=== PATIENT | female | born 1955 | race Caucasian/White ===

== ENCOUNTER → 2023-11-02 09:58 | Outpatient (REF) | payer OTHER, SELFPAY | LOC: WDC 09:58 | PROVIDERS: ATTENDING PHYSICIAN Nurse Practitioner | DX: R92.8 Other abnormal and inconclusive findings on diagnostic imaging of breast (principal) | CPT/HCPCS: 77061; 77065 ==

== ENCOUNTER 2024-03-31 20:04 | Emergency (ER) | payer MEDICARE, SELFPAY ==
[2024-03-31 20:15] VITALS: BP 153/82
[2024-03-31 21:41] VITALS: BMI 25.0
[2024-03-31 22:00] VITALS: BP 140/83
[2024-03-31 22:00] LABS: % Basophils 0.5 % (0-2); % Eosinophils 0.5 % (0-6); % Immature Granulocytes 0.2 % (0-0.5); % Monocytes 8.6 % (1.7-9.3); % Neutrophils 66.2 % (42.2-75.2); Absolute Lymphocytes 1.4 10^3/uL (1.2-3.4); Absolute Monocytes 0.5 10^3/uL (0.1-0.6); Absolute Neutrophils 3.9 10^3/uL (1.4-6.5); Hematocrit 39.9 % (37.0-47.0); Hemoglobin 14.2 g/dL (12.0-16.0); Mean Corp Hgb Conc. 35.6 g/dL (33.0-37.0); Mean Corpuscular Volume 81.4 fL (81.0-99.0); Mean Platelet Volume 12.2 fL (7.4-10.4); Nucleated Red Blood Cells % 0 %; Platelet Count 197 10^3/uL (130-400); Red Cell Dist. Width 12.1 % (11.5-14.5); Urine Albumin Negative (Neg - Trace); Urine Bilirubin Negative (Negative); Urine Character Clear (Clear); Urine Color Yellow; Urine Glucose Negative (Negative); Urine Ketone Negative (Negative); Urine Leukocyte 1+ (Negative); Urine Nitrite Negative (Negative); Urine Occult Blood 4+ (Negative); Urine Urobilinogen Negative (Neg - 1+)
[2024-03-31 22:11] LABS: Urine Red Blood Cell 0-2 /HPF (0-2)
[2024-03-31 22:18] LABS: Blood Urea Nitrogen 12 mg/dl (7-17); Calcium 9.6 mg/dl (8.4-10.2); Carbon Dioxide 25 mmol/L (22-30); Chloride 105 mmol/L (98-107); Estimated Creatinine Clearance 59 ml/min; Glucose 99 mg/dl (70-99); Potassium 4.1 mmol/L (3.5-5.1); Sodium 136 mmol/L (135-145); eGFR > 60.00
[2024-03-31 22:41] LABS: ALT (SGPT) 32 U/L (0-35); AST (SGOT) 31 U/L (14-36); Albumin 4.2 g/dl (3.5-5.0); Alkaline Phosphatase 115 U/L (38-126); Direct Bilirubin 0.2 mg/dl (0.0-0.4); Total Bilirubin 0.5 mg/dl (0.2-1.3); Total Protein 6.5 g/dl (6.3-8.2)
--- NOTE | 2024-03-31 22:58 | ED.GENMED ---
History of Present Illness
General
Chief Complaint: Urinary Symptoms
Source: patient
Exam Limitations: none
Time Seen by Provider: 03/31/24 21:22
Nursing documentation reviewed up to this point in time: agreed with
History of Present Illness
History of Present Illness:
Patient presents to ED secondary to intermittent episodes of passage of small blood clots during urination over the past 10 days. Patient was evaluated by her [facility] [employer] [employer] physician 2 days ago, during which time she received a pelvic exam, along with
straight catheterization of urine. Patient was empirically started on Macrobid at that time, along with given prescription to receive pelvic ultrasound as an outpatient, which is scheduled in 3 weeks. Denies fever or chills. Denies nausea,
vomiting, or diarrhea. Patient states that she does not 'feel well'. Denies previous history of similar symptoms. Patient reports approximately 10 pound weight loss with decreased appetite over the past 1 month. Denies fever or chills. Denies
abdominal pain. Denies dizziness or weakness. Denies shortness of breath. Patient does not take any blood thinning medications.
Review of Systems
Review of Systems
Allergies reviewed?: Yes
All Other Systems: ROS reviewed and negative except as documented in HPI and ROS
Constitutional: Reports no symptoms; Denies fever or chills
ABD/GI: Reports no symptoms; Denies abdominal pain, nausea, vomiting or diarrhea
: Reports bleeding
Musculoskeletal: Reports no symptoms
Skin: Reports no symptoms
Neurological: Reports no symptoms
Phy Exam
Physical Exam
Physical Exam:
Physical Exam
General: no apparent distress, not acutely ill. afebrile
Head: nc/at. eomi
Neck: supple. no meningeal signs.
Abdomen: normal bowel sounds. not tender.
Neuro: alert and oriented. no focal neurological deficits
Skin: no rash
Psychiatric: well kept. interactive and cooperative
Extremities: no edema. no calf tenderness.
Course
Orders/Labs/Results
Orders:
Orders
07/20/24 21:48
Basic Metabolic Panel Urgent
Complete Blood Count/With Diff Urgent
Fupay-Dolo-Krssdzk Urgent
Comment: ADD ON
Urinalysis Reflex To Culture Urgent
Date Specimen was Collected: 03/31/24
Time Specimen was Collected: 21:46
Urine Microscopic Reflex Cult Urgent
Urine Culture Urgent
[facility] Source: U
Specimen Description:
Date Specimen was Collected: 03/31/24
Time Specimen was Collected: 21:46
03/31/24 22:25
Add On- LAB Urgent
Tests Added?: liver function test
03/31/24 22:37
0.9% Sodium Chloride 500 ml [Nss] 500 ml IV BOLUS
US Pelvis W Transvag Combined Urgent
Comment:
Reason For Exam: vaginal bleeding w weight loss
04/01/24 00:19
0.9% Sodium Chloride 500 ml [Nss] 500 ml IV BOLUS
Abnormal Lab Results
03/31/24
21:48
MPV 12.2 H fL
(7.4-10.4)
Ur Occult Blood Reflex 4+ A
(Negative)
Leukocyte Esterase Rfl 1+ A
(Negative)
03/31/24 21:48
03/31/24 21:48
Vital Signs
Initial and Last Documented VS:
Initial Vital Signs
Temp Pulse Resp BP Pulse Ox
98.9 F 76 14 153/82 100
03/31/24 20:15 03/31/24 20:15 03/31/24 20:15 03/31/24 20:15 03/31/24 20:15
Last Documented Vital Signs
Temp Pulse Resp BP Pulse Ox
98.9 F 75 16 135/74 95
03/31/24 20:15 04/01/24 01:42 04/01/24 01:42 04/01/24 01:42 04/01/24 01:42
MDM/Problems Addressed
MDM/Problems Addressed:
UA: no RBCs noted.
Blood work within normal limits.
Pelvic US report reviewed and discussed with patient. Advised f/u with her [employer]holste[employer] physician for further evaluation and treatment.
*Critical Care Note
Total Time (30-74mins, 75-104mins- exclusive of procedures): Not Applicable
ED Attending Note
-
Portions of this chart may have been created with voice recognition software.� Occasional wrong word or��sound alike� substitutions may have occurred due to the inherent limitations of voice recognition software.
Discharge Plan
Departure
Patient Disposition: Home (Routine Discharge)
Date of Disposition: 04/01/24
Time of Disposition: 01:35
Patient with high blood pressure during this ER visit?: Yes
Discharge Problem:
Fibroid uterus
Instructions: Uterine Fibroids (DC)
Prescriptions:
No Action
melatonin 2.5 MG tablet,chewable
2.5 mg PO HS
Referrals:
Nissa Louis CRNP [Family Provider] -
Activity Restrictions/Additional Instructions:
As discussed, please follow-up with your [employer] physician for further evaluation and treatment.
Interventions
Interventions:
*Risk Screen - Suicide Last Done: 03/31/24 20:15
*General Assessment Last Done: 03/31/24 20:15
*Neglect/Abuse Screening Last Done: 03/31/24 20:15
ED- Fall Risk Assessment Last Done: 03/31/24 22:00
*ED COVID-19 Vaccine History Last Done: 03/31/24 21:41
*Nursing Disposition Last Done: 04/01/24 01:43
ED-Female Genitourinary Assessment Last Done: 03/31/24 22:56
Discharge Date and Time
Discharge Date/Time: 04/01/24 01:54
Print Language: ITALIAN
[2024-03-31] MEDS: NSS 500 IV (23:06)
[2024-03-31 23:43] VITALS: BP 135/74
[2024-04-01] MEDS: NSS 500 IV (00:30)
[2024-04-01 01:07] VITALS: BP 139/78
[2024-04-01 01:42] VITALS: BP 135/74
== END 2024-04-01 01:54 | disposition home or self-care (01) ==
LOC: EMR 20:04
PROVIDERS: EMERGENCY PHYSICIAN Emergency Medicine; FAMILY PHYSICIAN Nurse Practitioner
DX: D25.9 Leiomyoma of uterus, unspecified (principal)
CPT/HCPCS: 99284; 96360; 76830; 76856; 80048; 80076; 81003; 81015; 85025; 87086

== ENCOUNTER → 2024-04-19 07:29 | Day surgery (SDC) | payer MEDICARE, SELFPAY ==
[2024-04-19 09:55] VITALS: BMI 24.9
== END ==
LOC: SDSPAT 07:29
PROVIDERS: ATTENDING PHYSICIAN Urology; FAMILY PHYSICIAN Nurse Practitioner
DX: Z01.810 Encounter for preprocedural cardiovascular examination (principal); C67.9 Malignant neoplasm of bladder, unspecified
CPT/HCPCS: 93005; 36415

== ENCOUNTER → 2024-04-20 10:30 | Outpatient (REF) | payer MEDICARE, SELFPAY | LOC: RAD 10:30 | PROVIDERS: ATTENDING PHYSICIAN Urology; FAMILY PHYSICIAN Nurse Practitioner | DX: R31.0 Gross hematuria (principal) | CPT/HCPCS: 74178; Q9967 ==

== ENCOUNTER 2024-04-24 06:49 | Day surgery (SDC) | payer MEDICARE, SELFPAY ==
[2024-04-24] VITALS (13 sets, daily range): BP systolic 111–135; BP diastolic 54–72; BMI 24.8
[2024-04-24] MEDS: NORMOSOL-R 1000 IV (08:15)
[2024-04-24] MEDS: CYSVIEW KIT 100 MG INTRAVES (08:34)
[2024-04-24] MEDS: SYRINGE NON-PUMP 50 MG IRRIG ×2 (12:07→12:13)
[2024-04-24] MEDS: SYRINGE NON-PUMP 50 ML IRRIG ×2 (12:07→12:13)
[2024-04-24] MEDS: Pyridium 200 MG PO (12:21)
--- NOTE | 2024-04-24 14:33 | SUR.PHASEII ---
pt unable to void - pt made aware that it is not criteria for her to void prior to discharge, but still requesting to stay until she does void. made [facility] distribution [facility] savi aware. okay for pt to stay until she voids.
--- NOTE | 2024-04-24 15:25 | SUR.PHASEII ---
dr baez notified about pts concern about not voiding prior to discharge. bladder scanned for 230 mls. awaiting to hear back from dr baez about plan.
[2024-04-24] MEDS: LASIX 20 MG IV (16:32)
== END 2024-04-24 17:47 | disposition home or self-care (01) ==
LOC: SDS 06:49
PROVIDERS: ATTENDING PHYSICIAN Urology
DX: C67.4 Malignant neoplasm of posterior wall of bladder (principal)
CPT/HCPCS: 52235; C9738; 88307; A9589; C1769

== ENCOUNTER → 2024-07-24 15:33 | Outpatient (REF) | payer MEDICARE, SELFPAY | LOC: CLAB 15:33 | PROVIDERS: ATTENDING PHYSICIAN Urology | DX: C67.9 Malignant neoplasm of bladder, unspecified (principal) | CPT/HCPCS: 88112 ==

== ENCOUNTER → 2024-11-05 09:40 | Outpatient (REF) | payer MEDICARE, SELFPAY | LOC: CLAB 09:40 | PROVIDERS: ATTENDING PHYSICIAN Urology | DX: C67.9 Malignant neoplasm of bladder, unspecified (principal) | CPT/HCPCS: 88112 ==

== ENCOUNTER → 2025-02-26 15:52 | Outpatient (REF) | payer MEDICARE, SELFPAY | LOC: CLAB 15:52 | PROVIDERS: ATTENDING PHYSICIAN Urology | DX: C67.9 Malignant neoplasm of bladder, unspecified (principal) | CPT/HCPCS: 88112 ==

== ENCOUNTER → 2025-06-17 14:33 | Outpatient (REF) | payer MEDICARE, SELFPAY | LOC: CLAB 14:33 | PROVIDERS: ATTENDING PHYSICIAN Urology | DX: R31.0 Gross hematuria (principal); D49.4 Neoplasm of unspecified behavior of bladder; C67.2 Malignant neoplasm of lateral wall of bladder | CPT/HCPCS: 88112 ==

== ENCOUNTER → 2025-06-26 15:36 | Outpatient (REF) | payer MEDICARE, SELFPAY | LOC: RAD 15:36 | PROVIDERS: ATTENDING PHYSICIAN Urology; FAMILY PHYSICIAN Internal Medicine | DX: C67.2 Malignant neoplasm of lateral wall of bladder (principal) | CPT/HCPCS: 74178; Q9967 ==